=== PATIENT | female | born 1985 | race Caucasian/White ===

== ENCOUNTER 2016-09-25 03:01 | Emergency (ER) | payer OTHER ==
[~2016-09-25] VITALS: Ht 160 cm; Wt 59.0 kg
[2016-09-25 03:01] VITALS: BP_SYST 126
[2016-09-25 03:30] VITALS: BP_SYST 121
== END 2016-09-25 03:21 ==
LOC: SED 03:01
DX: Z02.89 Encounter for other administrative examinations (principal); F41.9 Anxiety disorder, unspecified
CPT/HCPCS: 99283